=== PATIENT | female | born 1965 | race Caucasian/White ===

== ENCOUNTER → 2023-04-08 | Outpatient (CLI) | payer OTHER, MEDICARE ==
--- NOTE | 2023-04-09 11:04 | MR ---
EXAMINATION TYPE: MR lumbar spine wo/w con DATE OF EXAM: 04/08/2023 4:42 PM COMPARISON: 11/14/2011. CLINICAL INDICATION: Female, 58 years old with history of Z98.1;Low back pain that radiates down legs . History of surgery. TECHNIQUE: Multi planar, multi sequence imaging was performed utilizing: T1-weighted, T2-weighted, a nd turbo inversion recovery imaging of the lumbar spine. IV Contrast: 10.5 cc Gadavist. None. FINDINGS: Alignment: Postsurgical alignment. The lumbar vertebral bodies have preserved heights and alignment. Cord: The conus medullaris and the distal spinal cord appear unremarkable with regards to their signa l intensity and morphology. No abnormal postcontrast enhancement. Bones/Discs: Fixation hardware at L4-L5 and S1. Evaluation at these levels is limited. Laminectomy ch anges are also present at these levels. No abnormal bony edema on inversion recovery sequences. Scatt ered mild osteophyte formation facet joint arthropathy. Fixation hardware also seen in the left sacro iliac joint with metal susceptibility artifact. Perineural cysts are seen at the level of S2. No abno rmal postcontrast enhancement. T12-L1: No evidence of significant spinal canal stenosis or neural foraminal stenosis. L1-L2: No evidence of significant spinal canal stenosis or neural foraminal stenosis. L2-L3: Disc bulge and facet joint arthropathy result in mild spinal canal and mild bilateral neural f oraminal stenosis. L3-L4: Disc bulge and facet joint arthropathy result in mild spinal canal and mild bilateral neural f oraminal stenosis. L4-L5: Postsurgical changes with susceptibility artifact limits evaluation. No evidence of significan t spinal canal stenosis. Facet joint arthropathy mild bilateral neural foraminal stenosis. L5-S1: Postsurgical changes with susceptibility artifact limits evaluation. No evidence of significan t spinal canal stenosis. Facet joint arthropathy mild bilateral neural foraminal stenosis. No significant spinal canal or neural foraminal stenosis in the remainder of the visualized levels. Other findings: None. IMPRESSION: 1. Postsurgical changes without evidence for high-grade stenosis. No abnormal postcontrast enhanceme nt. No evidence of disc herniation or significant spinal canal or neural foraminal stenosis. 2. Mild disc degeneration with associated osteoarthritic changes.
== END | disposition home or self-care (01) ==
LOC: RADMRIMAIN 15:42
PROVIDERS: ATTEND Orthopaedic Surgery
DX: M51.36 Other intervertebral disc degeneration, lumbar region (principal); M47.816 Spondylosis without myelopathy or radiculopathy, lumbar region; Z98.1 Arthrodesis status
CPT/HCPCS: 72158; A9585

== ENCOUNTER → 2023-09-15 | Outpatient (CLI) | payer OTHER, MEDICARE ==
--- NOTE | 2023-09-15 11:59 | MR ---
EXAMINATION TYPE: MR lumbar spine wo/w con DATE OF EXAM: 09/15/2023 11:20 AM COMPARISON: NONE HISTORY: PAIN IN BACK, LEGS AND FEET X1 YEAR-MOSTLY RT SIDE CONTRAST: The patient was injected with 10.5ML mL intravenous Gadavist gadolinium contrast. Multiplanar, MultiSpin echo imaging of the lumbar spine was performed. L1-L2: Normal disc appearance without desiccation. No herniation, protrusion or disc bulging. No ca nal stenosis is present. Foramina are patent bilaterally. L2-L3: Moderate disc desiccation noted. Left paracentral disc bulge mild left lateral recess stenosis . No significant foraminal encroachment. No evidence for central stenosis. L3-L4: Mild to moderate disc desiccation posterior disc bulge. Mild effacement ventral thecal sac wit hout herniation or central stenosis. Right foraminal encroachment is mildly degree. L4-L5: Postsurgical changes of lumbar laminectomy and fusion. Pedicular screws in place. Anterior sta bilizers noted. No evidence for recurrent process. No disc herniation or central stenosis. L5-S1: Postsurgical changes of lumbar laminectomy and fusion. Pedicular screws in place. Anterior sta bilizers noted. No evidence for recurrent process. No disc herniation or central stenosis. Lumbar segments are intact. No paraspinal masses are identified. Conus medullaris has a normal appe arance. IMPRESSION: 1. Postoperative changes with appropriate postoperative alignment. 2. General disc disease and disc bulging.
== END | disposition home or self-care (01) ==
LOC: RADMRIMAIN 10:29
PROVIDERS: ATTEND Anesthesiology
DX: M96.1 Postlaminectomy syndrome, not elsewhere classified (principal); M51.36 Other intervertebral disc degeneration, lumbar region; Z98.890 Other specified postprocedural states
CPT/HCPCS: 72158; A9585

== ENCOUNTER → 2024-04-28 | Outpatient (CLI) | payer OTHER, MEDICARE ==
--- NOTE | 2024-04-28 10:57 | MR ---
EXAMINATION TYPE: MR lumbar spine wo/w con DATE OF EXAM: 04/28/2024 COMPARISON: 09/15/2023. HISTORY: Low back pain into immanuel lower extremities TECHNIQUE: Multiplanar, multisequence images of the lumbar spine were acquired without and with 10 mL intravenou s Gadavist gadolinium contrast. Findings: There are postsurgical changes of wide laminectomy and posterior metallic and interdisc fusion at the L4-S1 level. The lumbar vertebral segments are normal in height and alignment. There is mild disc space narrowing and moderate circumferential disc bulge of the L2-3 and L3-4 discs indicating moderate degenerative disc disease. There is no lumbar disc herniation or spinal stenosis . On the right, there is mild neural foraminal encroachment at the L3-4 level and moderate neural gabriel inal encroachment at the L4-5 and L5-S1 levels. On the left, there is moderate neural foraminal encro achment at the L4-5 level. Paraspinal soft tissues unremarkable. IMPRESSION: 1. Post surgical changes of laminectomy and fusion from L4 through S1. 2. Moderate degenerative disease at the L2-3 and L3-4 levels. 3. No lumbar disc herniation or spinal stenosis. 4. Bilateral neural foraminal stenosis in the lower lumbar spine as described above. 5. comparison prior study reveals no significant interval change.
== END | disposition home or self-care (01) ==
LOC: RADMRIMAIN 09:11
PROVIDERS: ATTEND Anesthesiology
DX: M96.1 Postlaminectomy syndrome, not elsewhere classified (principal); M51.36 Other intervertebral disc degeneration, lumbar region; M99.73 Connective tissue and disc stenosis of intervertebral foramina of lumbar region
CPT/HCPCS: 72158; A9585

== ENCOUNTER → 2024-04-28 | Outpatient (CLI) | payer OTHER, MEDICARE ==
--- NOTE | 2024-04-28 11:04 | MR ---
MRI right ankle HISTORY: Anterior tendon tear. COMPARISON: None TECHNIQUE: Multiaxial multiplanar images of the right ankle were obtained. FINDINGS: The flexor and extensor tendons and tendon sheaths are intact and there is no tendon tear, tendinosis or tenosynovitis. Peroneal tendons and tendon sheaths are intact. There is no abnormality of the Achilles tendon. The sinus tarsi is normal. There is no evidence of ligamentous injury. There is moderate osteoarthritic changes in the midfoot with hypertrophic spurring, subchondral cysts and edema. Changes are particularly noted in the talonavicular joint and in the fifth cuneiform/fift h metatarsal articulation. IMPRESSION: 1. No ligamentous injury. 2. No abnormality of the tendons or tendon sheaths. 3. moderate osteoarthritic changes in the midfoot as described above.
== END | disposition home or self-care (01) ==
LOC: RADMRIMAIN 09:03
PROVIDERS: ATTEND Podiatrist
DX: M19.071 Primary osteoarthritis, right ankle and foot (principal)

== ENCOUNTER → 2024-08-27 | Outpatient (CLI) | payer OTHER, MEDICARE ==
--- NOTE | 2024-08-27 12:54 | XR ---
EXAMINATION TYPE: XR shoulder complete 3 views RT DATE OF EXAM: 08/27/2024 11:49 AM COMPARISON: None CLINICAL INDICATION: Female, 59 years old with history of R52 pain, , FINDINGS: Moderate degenerative change at the AC joint with marginal spurring and subchondral sclerosis. Subacr omial space is preserved. No tendinous or bursal calcifications. Small delineation of the greater tub erosity. No acute fracture, subluxation, or dislocation. IMPRESSION: Moderate AC joint OA. Inferior spurring may contribute to subacromial impingement. No acute osseous a bnormality seen. [facility], , 08/27/2024 12:51 PM
== END | disposition home or self-care (01) ==
LOC: RADXRMAIN 11:17
PROVIDERS: ATTEND Internal Medicine
DX: M19.011 Primary osteoarthritis, right shoulder (principal)

== ENCOUNTER → 2024-10-30 | Outpatient (CLI) | payer OTHER, MEDICARE ==
--- NOTE | 2024-10-31 19:28 | MR ---
EXAMINATION TYPE: MR shoulder RT wo con DATE OF EXAM: 10/30/2024 8:10 PM COMPARISON: None. CLINICAL INDICATION: Female, 59 years old with history of M25.511, Right shoulder pain and limited ra nge of motion since 2023 IV Contrast: cc (None if empty) TECHNIQUE: Multiplanar, multisequence imaging of the right shoulder is performed without contrast. FINDINGS: There is no bone contusion, bone marrow edema or fracture. There is advanced osteoarthritic changes of the AC joint and a small subacromial spur resulting in mi ld shoulder impingement. There is thickening of the supraspinatus tendon with small intrasubstance tears and a rim rent tear. There are small intrasubstance tears of the infraspinatus tendon as well. The subscapularis tendon is intact. The biceps tendon is normal in signal intensity and position within the bicipital groove and the jessi ps anchor is intact. There is a tear of the superior cartilaginous labrum consistent with a SLAP inju ry. There is moderate subacromial and subdeltoid bursitis. IMPRESSION: 1. Rotator cuff tears involving the infraspinatus and supraspinatus tendons without retraction. 2. SLAP injury as described above. 3. Marked degenerative change of the AC joint with subacromial spur resulting in mild shoulder imping ement 4. subacromial and subdeltoid bursitis. [facility], , 10/31/2024 7:26 PM
== END | disposition home or self-care (01) ==
LOC: RADMRIMAIN 19:17
PROVIDERS: ATTEND Internal Medicine
DX: M19.011 Primary osteoarthritis, right shoulder (principal); M25.811 Other specified joint disorders, right shoulder; M75.51 Bursitis of right shoulder; M75.101 Unspecified rotator cuff tear or rupture of right shoulder, not specified as traumatic

== ENCOUNTER → 2025-04-03 | Outpatient (CLI) | payer OTHER, MEDICARE ==
--- NOTE | 2025-04-04 12:34 | MR ---
EXAMINATION TYPE: MR lumbar spine wo/w con DATE OF EXAM: 04/03/2025 8:04 PM COMPARISON: MRI lumbar spine 04/28/2024, 09/15/2023, 04/08/2023, CT lumbar spine 11/14/2011 CLINICAL INDICATION: Female, 60 years old with history of M96.1 POSTLAMINECTOMY SYNDROME, NOT ELSEWHE RE CLAS, Fell 2 months ago, Low back pain into both legs, Hx back surgery 2015, 2018 IV Contrast: 10 cc Gadobutrol (None if empty) TECHNIQUE: Multiplanar, multisequence images of the lumbar spine were acquired without and with 10 mL intravenou s Gadobutrol gadolinium contrast. FINDINGS: Alignment: Postsurgical alignment. The lumbar vertebral bodies have preserved heights and alignment. Cord: The conus medullaris and the distal spinal cord appear unremarkable with regards to their signa l intensity and morphology. No abnormal postcontrast enhancement. Bones/Discs: Anterior and posterior fixation hardware at L4-S1 with laminectomy changes at these leve ls. Additionally there is left SI joint fixation hardware demonstrated on survey imaging with suscept ibility artifact. Evaluation at these levels is limited due to susceptibility artifact. No abnormal bony edema on inversion recovery sequences. Scattered mild osteophyte formation facet joint arthropat hy. Mild Schmorl's without edema involving the inferior endplate of the L2 vertebral body. Incidental Tarlov cysts are seen at the level of S2 again. No abnormal postcontrast enhancement. T12-L1: No evidence of significant spinal canal stenosis or neural foraminal stenosis. L1-L2: No evidence of significant spinal canal stenosis or neural foraminal stenosis. L2-L3: New left foraminal zone disc protrusion. This is superimposed upon a broad-based disc bulge. T here is abutment of the exiting left L3 nerve root. Results in mild left neural foraminal stenosis. L3-L4: Disc bulge and facet joint arthropathy result in mild spinal canal and mild bilateral neural f oraminal stenosis. L4-L5: Postsurgical changes with susceptibility artifact limits evaluation. No evidence of significan t spinal canal stenosis. Facet joint arthropathy mild bilateral neural foraminal stenosis. L5-S1: Postsurgical changes with susceptibility artifact limits evaluation. No evidence of significan t spinal canal stenosis. Facet joint arthropathy mild bilateral neural foraminal stenosis. No significant spinal canal or neural foraminal stenosis in the remainder of the visualized levels. Other findings: Left renal sinus T2 hyperintense cysts redemonstrated. IMPRESSION: 1. No evidence for acute fracture of the visualized thoracolumbar spine. 2. Postsurgical changes without evidence for significant spinal canal stenosis. No abnormal postcontr ast enhancement. 3. Multilevel degenerative disc disease redemonstrated at primarily L2-L3 and L3-L4. New left foramin al zone disc protrusion at L2-L3 with abutment of the exiting left L3 nerve root. Results in mild lef t neural foraminal stenosis. [facility], , 04/04/2025 12:32 PM
== END | disposition home or self-care (01) ==
LOC: RADMRIMAIN 18:32
PROVIDERS: ATTEND Anesthesiology
DX: M48.061 Spinal stenosis, lumbar region without neurogenic claudication (principal); M51.369 Other intervertebral disc degeneration, lumbar region without mention of lumbar back pain or lower extremity pain; M51.26 Other intervertebral disc displacement, lumbar region; M96.1 Postlaminectomy syndrome, not elsewhere classified; Z98.890 Other specified postprocedural states
CPT/HCPCS: 72158; A9585

== ENCOUNTER → 2025-04-26 | Outpatient (CLI) | payer MEDICARE, OTHER ==
--- NOTE | 2025-04-26 12:16 | XR ---
EXAMINATION TYPE: XR shoulder complete LT DATE OF EXAM: 04/26/2025 12:05 PM COMPARISON: None. CLINICAL INDICATION: Female, 60 years old with history of FALL,INJURY,L SHOULDER PAIN, MOV. LIMITATIO N, Pain TECHNIQUE: XR shoulder complete LT view(s) obtained. FINDINGS: The humeral head articulates with the glenoid. The acromio-clavicular junction is normal. No acute fractures or dislocations are evident. A follow up study can be performed 7-10 days from acute trauma for continued pain. MRI can be perfor med if soft tissue evaluation would be of benefit. IMPRESSION: 1. No acute osseous shoulder abnormality. [facility], , 04/26/2025 12:14 PM
== END | disposition home or self-care (01) ==
LOC: RADXRMAIN 11:31
PROVIDERS: ATTEND Internal Medicine
DX: S49.82XA Other specified injuries of left shoulder and upper arm, initial encounter (principal); M25.512 Pain in left shoulder; W19.XXXA Unspecified fall, initial encounter